=== PATIENT | female | born 1995 | race Two or more races ===

== ENCOUNTER 2018-02-16 19:26 | Emergency (ER) | payer MEDICAID ==
[~2018-02-16] VITALS: Ht 167.6 cm; Wt 130.0 kg
[2018-02-16 19:41] VITALS: BP 156/75
[2018-02-16] MEDS ORDERED: PROPARACAINE OPHTH 0.5%, 15ML EACHEYE ONE (21:00)
[2018-02-16] MEDS ORDERED: FLUORESCEIN OPHTHALMIC 1 MG STRIP EACHEYE ONE (21:00)
== END 2018-02-16 21:34 | disposition home or self-care (01) ==
LOC: ED 20:53
DX: S05.02XA Injury of conjunctiva and corneal abrasion without foreign body, left eye, initial encounter (principal); X58.XXXA Exposure to other specified factors, initial encounter; Y93.89 Activity, other specified; Y92.89 Other specified places as the place of occurrence of the external cause; Y99.8 Other external cause status
CPT/HCPCS: 99283; 99284

== ENCOUNTER 2019-06-13 00:11 | Emergency (ER) | payer MEDICAID ==
[~2019-06-13] VITALS: Ht 167.6 cm; Wt 124.6 kg
[2019-06-13 00:15] VITALS: BP 149/88
== END 2019-06-13 00:51 | disposition home or self-care (01) ==
LOC: ED 00:45
DX: L03.012 Cellulitis of left finger (principal)
CPT/HCPCS: 99283